=== PATIENT | male | born 1980 | race Caucasian/White ===

== ENCOUNTER 2023-08-30 10:58 | Emergency (ER) | payer OTHER ==
[~2023-08-30] VITALS: Ht 165.1 cm; Wt 80.0 kg
[2023-08-30 11:01] VITALS: O2SAT 98
[2023-08-30] MEDS: IBUPROFEN 600MG TABLET PO ONE (12:31)
[2023-08-30] MEDS ORDERED: IBUP-2029 MT (12:44)
[2023-08-30] MEDS ORDERED: LIDO700A30 TP (12:44)
[2023-08-30 13:04] VITALS: BP 138/64; PULSE 83; RESP 17; TEMP 98.1
== END 2023-08-30 13:09 | disposition home or self-care (01) ==
LOC: ER 11:46
DX: M54.9 Dorsalgia, unspecified (principal); E11.9 Type 2 diabetes mellitus without complications; I10 Essential (primary) hypertension; V49.9XXA Car occupant (driver) (passenger) injured in unspecified traffic accident, initial encounter; Y93.89 Activity, other specified; Y92.89 Other specified places as the place of occurrence of the external cause; Y99.8 Other external cause status
CPT/HCPCS: 72070; 72100; 99284

== ENCOUNTER 2024-05-18 08:00 | Emergency (ER) | payer OTHER, MEDICAID ==
[~2024-05-18] VITALS: Ht 162.6 cm; Wt 65.8 kg
[~2024-05-18 08:00] MED LIST: IBUP-2029 MT; LIDO700A30 TP
[2024-05-18 08:03] VITALS: O2SAT 99
[2024-05-18 08:19] VITALS: BP 115/76; PULSE 74; RESP 16; TEMP 98.3; O2SAT 99
[2024-05-18 09:26] LABS: BASOPHILS % 0.9 % (0.0-2.0); DIFFERENTIAL COMMENT 0; EOSINOPHILS % 0.7 % (0.0-5.0); HEMATOCRIT. 49.2 % (42.0-52.0); HEMOGLOBIN. 16.4 g/dL (14.0-18.0); LYMPHOCYTES % 36.3 % (20.0-50.0); MEAN CORPUSCULAR HEMOGLOBIN 30.9 pg (28.0-32.0); MEAN CORPUSCULAR HGB CONC 33.3 g/dL (31.0-37.0); MEAN CORPUSCULAR VOLUME 92.9 fL (80.0-94.0); MEAN PLATELET VOLUME 10.4 fl (7.4-10.4); MONOCYTES % 7.2 % (2.0-8.0); NEUTROPHILS % 54.9 % (40.0-76.0); PLATELET 208 x1000/uL (130-400); RED CELL DISTRIBUTION WIDTH 13.7 % (11.6-14.6); WHITE BLOOD COUNT 6.1 x1000/uL (4.5-11.0)
[2024-05-18 09:33] LABS: CARBON DIOXIDE 27 mEq/L (21-32); CHLORIDE 104 mEq/L (98-107); POTASSIUM 4.4 mEq/L (3.5-5.1); SODIUM 139 mEq/L (136-145)
[2024-05-18 09:34] LABS: CALCIUM 10.8 mg/dL (8.7-10.4)
[2024-05-18 09:38] LABS: CREATININE 0.8 mg/dL (0.6-1.3)
[2024-05-18 09:39] LABS: GLUCOSE 195 mg/dL (70-105); UREA NITROGEN BLOOD 17 mg/dL (9-23)
[2024-05-18 09:40] LABS: ALANINE AMINOTRANSFERASE 32 IU/L (10-49); ALBUMIN 5.2 g/dL (3.2-4.8); ASPARTATE AMINOTRANSFERASE 26 IU/L (<34)
[2024-05-18 09:41] LABS: BILIRUBIN DIRECT 0.3 mg/dL (<=3.0); PROTEIN TOTAL 8.4 g/dL (6.0-8.3)
[2024-05-18 09:48] LABS: TROPONIN I HIGH SENSITIVITY < 4 ng/L (3.0-53)
[2024-05-18 10:37] LABS: CLARITY URINE CLEAR (CLEAR); COLOR URINE YELLOW (YELLOW); GLUCOSE URINE 3+ (NEGATIVE); KETONES URINE TRACE (NEGATIVE); LEUKOCYTE ESTERASE URINE NEGATIVE (NEGATIVE); NITRITE URINE NEGATIVE (NEGATIVE); OCCULT BLOOD URINE NEGATIVE (NEGATIVE); PH URINE 6.5 (4.5-8.0); PROTEIN URINE NEGATIVE (NEGATIVE); SPECIFIC GRAVITY URINE 1.051 (1.005-1.030)
[2024-05-18] MEDS ORDERED: FAMO-135 MT (11:13)
[2024-05-18 11:55] LABS: SQUAMOUS EPITHELIAL CELL URINE RARE /lpf (RARE/1+)
[2024-05-18 11:56] LABS: BACTERIA URINE NONE SEEN; RBC URINE NONE SEEN /hpf (0-2); WBC URINE 0-2 /hpf (0-2)
== END 2024-05-18 11:36 | disposition home or self-care (01) ==
LOC: ER 08:12
DX: K29.70 Gastritis, unspecified, without bleeding (principal); I10 Essential (primary) hypertension; E11.9 Type 2 diabetes mellitus without complications; F10.20 Alcohol dependence, uncomplicated; Y90.9 Presence of alcohol in blood, level not specified
CPT/HCPCS: 99284; 76705; 80076; 80048; 81003; 83690; 85025; 84484; 36415; 93005; A4663; A4606

== ENCOUNTER 2024-08-09 11:30 | Emergency (ER) | payer MEDICAID, OTHER ==
[~2024-08-09] VITALS: Ht 165.1 cm; Wt 68.0 kg
[~2024-08-09 11:30] MED LIST changes: +FAMO-135 MT
[2024-08-09 11:34] VITALS: O2SAT 95
[2024-08-09] MEDS: SODIUM CHLORIDE 0.9% 1,000 ML IV ONE (12:56)
[2024-08-09] MEDS: ONDANSETRON HCL 4MG/2ML INJ IV STA (13:07)
[2024-08-09 13:12] LABS: CARBON DIOXIDE 22 mEq/L (21-32); CHLORIDE 97 mEq/L (98-107); POTASSIUM 4.2 mEq/L (3.5-5.1); PROTHROMBIN TIME 10.7 sec (9.6-11.0); SODIUM 138 mEq/L (136-145)
[2024-08-09 13:13] LABS: CALCIUM 9.2 mg/dL (8.7-10.4)
[2024-08-09 13:18] LABS: BASOPHILS % 0.8 % (0.0-2.0); CREATININE 0.7 mg/dL (0.6-1.3); EOSINOPHILS % 1.1 % (0.0-5.0); ETHANOL BLOOD 229 mg/dL (<10); GLUCOSE 341 mg/dL (70-105); HEMATOCRIT. 43.3 % (42.0-52.0); HEMOGLOBIN. 14.3 g/dL (14.0-18.0); LYMPHOCYTES % 28.3 % (20.0-50.0); MEAN CORPUSCULAR HEMOGLOBIN 31.6 pg (28.0-32.0); MEAN PLATELET VOLUME 9.7 fl (7.4-10.4); MONOCYTES % 9.9 % (2.0-8.0); NEUTROPHILS % 59.9 % (40.0-76.0); PLATELET 121 x1000/uL (130-400); RED BLOOD CELL COUNT 4.51 mill/uL (4.7-6.1); RED CELL DISTRIBUTION WIDTH 15.6 % (11.6-14.6); UREA NITROGEN BLOOD 8 mg/dL (9-23); WHITE BLOOD COUNT 3.9 x1000/uL (4.5-11.0)
[2024-08-09 13:19] LABS: ALANINE AMINOTRANSFERASE 202 IU/L (10-49); ASPARTATE AMINOTRANSFERASE 209 IU/L (<34)
[2024-08-09 13:20] LABS: CLARITY URINE CLEAR (CLEAR); COLOR URINE YELLOW (YELLOW); GLUCOSE URINE 3+ (NEGATIVE); KETONES URINE TRACE (NEGATIVE); LEUKOCYTE ESTERASE URINE NEGATIVE (NEGATIVE); NITRITE URINE NEGATIVE (NEGATIVE); OCCULT BLOOD URINE NEGATIVE (NEGATIVE); PROTEIN URINE NEGATIVE (NEGATIVE); UROBILINOGEN URINE 0.2 E.U./dL (0.2-1.0)
[2024-08-09 13:20] LABS: ALBUMIN 4.3 g/dL (3.2-4.8); BETA HYDROXYBUTYRATE 1.6 mMol/L (0.0-0.3); BILIRUBIN DIRECT 0.2 mg/dL (<=3.0); BILIRUBIN TOTAL 0.7 mg/dL (0.1-1.0); PROTEIN TOTAL 7.3 g/dL (6.0-8.3)
[2024-08-09 13:27] LABS: TROPONIN I HIGH SENSITIVITY < 4 ng/L (3.0-53)
[2024-08-09 13:34] LABS: *AMPHETAMINES SCREEN URINE NEGATIVE (NEGATIVE); *BARBITURATES SCREEN URINE NEGATIVE (NEGATIVE); *BENZODIAZEPINES SCREEN URINE NEGATIVE (NEGATIVE); *COCAINE SCREEN URINE NEGATIVE (NEGATIVE); CANNABINOID URINE SCREEN NEGATIVE (NEGATIVE); METHADONE URINE SCREEN NEGATIVE (NEGATIVE); OPIATES URINE SCREEN NEGATIVE (NEGATIVE); PHENCYCLIDINE URINE SCREEN NEGATIVE (NEGATIVE)
[2024-08-09 13:35] LABS: ECSTASY MDMA SCREEN URINE NEGATIVE (NEGATIVE)
[2024-08-09 13:43] LABS: BACTERIA URINE NONE SEEN; RBC URINE 0-2 /hpf (0-2); SQUAMOUS EPITHELIAL CELL URINE 1+ /lpf (RARE/1+); WBC URINE 0-2 /hpf (0-2); YEAST URINE NONE SEEN
[2024-08-09 15:12] LABS: TROPONIN I HIGH SENSITIVITY < 4 ng/L (3.0-53)
[2024-08-09 16:24] LABS: BG BASE EXCESS -2.2 mmol/L (-2.0-3.0); BG CARBOXYHEMOGLOBIN 0.9 % (0.5-1.5); BG DEOXYHEMOGLOBIN 4.7 % (0.0-5.0); BG FRACTION INSPIRED OXYGEN 21; BG HCO3 ACT 21.8 mmol/L (21.0-28.0); BG METHEMOGLOBIN 0.1 % (0.5-1.5); BG OXYGEN SATURATION 95.3 % (94.0-98.0); BG OXYHEMOGLOBIN 94.3 % (94.0-98.0); BG PCO2 35.5 mmHg (35.0-48.0); BG PH 7.406 (7.350-7.450); BG PO2 80.3 mmHg (83.0-108.0); BG SAMPLE SITE RIGHT RADIAL; BG TOTAL HEMOGLOBIN 15.4 g/dL (13.5-17.5); BG VENT MODE ROOM AIR
[2024-08-09 18:01] VITALS: BP 143/83; PULSE 98; RESP 16; TEMP 37.1; O2SAT 96
== END 2024-08-09 18:25 | disposition home or self-care (01) ==
LOC: ER 11:30
DX: E11.65 Type 2 diabetes mellitus with hyperglycemia (principal); F10.90 Alcohol use, unspecified, uncomplicated; I10 Essential (primary) hypertension; Z79.899 Other long term (current) drug therapy; Y90.9 Presence of alcohol in blood, level not specified
CPT/HCPCS: 80076; 80305; 80048; 81003; 82010; 80320; 82962; 85025; 85610; 84484; 36415; 71045; 82805; 82375; 93005; 96374; 99285; 36600; J2405; J7030; Z7610; G0480

== ENCOUNTER 2024-08-12 13:35 | Emergency (ER) | payer OTHER ==
[~2024-08-12] VITALS: Ht 162.6 cm; Wt 77.0 kg
[2024-08-12 13:36] VITALS: O2SAT 99
[2024-08-12 15:11] LABS: BASOPHILS % 0.4 % (0.0-2.0); EOSINOPHILS % 1.5 % (0.0-5.0); HEMATOCRIT. 45.7 % (42.0-52.0); HEMOGLOBIN. 15.1 g/dL (14.0-18.0); LYMPHOCYTES % 17.5 % (20.0-50.0); MEAN CORPUSCULAR HEMOGLOBIN 32.8 pg (28.0-32.0); MEAN CORPUSCULAR VOLUME 99.1 fL (80.0-94.0); MEAN PLATELET VOLUME 9.8 fl (7.4-10.4); MONOCYTES % 10.5 % (2.0-8.0); NEUTROPHILS % 70.1 % (40.0-76.0); PLATELET 144 x1000/uL (130-400); RED BLOOD CELL COUNT 4.61 mill/uL (4.7-6.1); RED CELL DISTRIBUTION WIDTH 15.3 % (11.6-14.6); WHITE BLOOD COUNT 4.5 x1000/uL (4.5-11.0)
[2024-08-12 15:17] LABS: CHLORIDE 99 mEq/L (98-107); POTASSIUM 4.7 mEq/L (3.5-5.1); SODIUM 134 mEq/L (136-145)
[2024-08-12 15:18] LABS: CARBON DIOXIDE 25 mEq/L (21-32)
[2024-08-12 15:19] LABS: CALCIUM 9.2 mg/dL (8.7-10.4)
[2024-08-12 15:23] LABS: CREATININE 0.8 mg/dL (0.6-1.3); GLUCOSE 217 mg/dL (70-105)
[2024-08-12 15:24] LABS: UREA NITROGEN BLOOD 18 mg/dL (9-23)
[2024-08-12 15:25] LABS: ALANINE AMINOTRANSFERASE 271 IU/L (10-49); ALBUMIN 4.4 g/dL (3.2-4.8); ASPARTATE AMINOTRANSFERASE 250 IU/L (<34)
[2024-08-12 15:26] LABS: PROTEIN TOTAL 7.5 g/dL (6.0-8.3)
[2024-08-12 16:02] VITALS: BP 128/78; PULSE 82; RESP 18; TEMP 36.8; O2SAT 99
== END 2024-08-12 16:04 | disposition home or self-care (01) ==
LOC: ER 13:35
DX: E11.65 Type 2 diabetes mellitus with hyperglycemia (principal); I10 Essential (primary) hypertension; Z79.899 Other long term (current) drug therapy
CPT/HCPCS: 36415; 76700; 80053; 85025; 99284

== ENCOUNTER 2025-04-24 19:28 | Emergency (ER) | payer OTHER ==
[~2025-04-24] VITALS: Ht 170.2 cm; Wt 82.0 kg
[~2025-04-24 19:28] MED LIST changes: +IBUP-1455 MT; -IBUP-2029 MT
[2025-04-24 19:33] VITALS: TEMP 98.6; O2SAT 97
[2025-04-24] MEDS: KETOROLAC 15MG/ML VIAL IV ONE (19:57)
[2025-04-24] MEDS: SODIUM CHLORIDE 0.9% 1,000 ML IV ONE (19:57)
[2025-04-24] MEDS: METOCLOPRAMIDE HCL 10MG/2ML VIAL IV ONE (19:57)
[2025-04-24 20:00] LABS: BG DEOXYHEMOGLOBIN 6.9 % (0.0-5.0)
[2025-04-24 20:04] VITALS: BP 126/83; PULSE 100; RESP 20; O2SAT 96
[2025-04-24 20:17] LABS: BASOPHILS % 0.8 % (0.0-2.0); EOSINOPHILS % 0.9 % (0.0-5.0); HEMATOCRIT. 45.2 % (42.0-52.0); HEMOGLOBIN. 15.1 g/dL (14.0-18.0); LYMPHOCYTES % 37.2 % (20.0-50.0); MEAN PLATELET VOLUME 10.1 fl (7.4-10.4); MONOCYTES % 4.7 % (2.0-8.0); NEUTROPHILS % 56.4 % (40.0-76.0); PLATELET 194 x1000/uL (130-400); RED BLOOD CELL COUNT 4.89 mill/uL (4.7-6.1); RED CELL DISTRIBUTION WIDTH 13.0 % (11.6-14.6)
[2025-04-24 20:30] LABS: CREATININE 0.8 mg/dL (0.6-1.3)
[2025-04-24 20:31] LABS: UREA NITROGEN BLOOD 7 mg/dL (9-23)
[2025-04-24 20:32] LABS: ASPARTATE AMINOTRANSFERASE 22 IU/L (<34); TROPONIN I HIGH SENSITIVITY < 4 ng/L (3.0-53)
[2025-04-24 20:33] LABS: BILIRUBIN DIRECT 0.2 mg/dL (<=3.0); BILIRUBIN TOTAL 0.6 mg/dL (0.1-1.0); PROTEIN TOTAL 7.0 g/dL (6.0-8.3)
== END 2025-04-24 21:48 | disposition left against medical advice (07) ==
LOC: ER 19:28 → CMPBEDREQ 04-26 07:39
DX: E11.65 Type 2 diabetes mellitus with hyperglycemia (principal); I10 Essential (primary) hypertension; R07.9 Chest pain, unspecified; R51.9 Headache, unspecified; R06.02 Shortness of breath; Z79.4 Long term (current) use of insulin
CPT/HCPCS: 80076; 80048; 82010; 80320; 83880; 83735; 85025; 84484; 36415; 71045; 82375; 82803; 93005; 96361; 96374; 96375; 99285; J1885; J2765; J7030; G0480